=== PATIENT | female | born 1955 | race Caucasian/White ===

== ENCOUNTER 2020-03-29 17:54 | Emergency (ER) | payer MEDICARE, OTHER ==
[~2020-03-29] VITALS: Ht 170.2 cm; Wt 59.0 kg
[2020-03-29 18:00] VITALS: BP 146/78
[2020-03-29 18:24] LABS: BASO % 0 % (0-3); EOS # 0.1 x10^3/uL (0.0-0.7); EOS % 2 % (0-3); HEMATOCRIT 37.1 % (36.0-47.0); HEMOGLOBIN 12.3 g/dL (12.0-15.5); LYMPH % 13 % (24-48); MEAN CORPUSCULAR HEMOGLOBIN 29 pg (25-35); MEAN CORPUSCULAR HGB CONC 33 g/dL (31-37); MEAN CORPUSCULAR VOLUME 89 fL (79-100); MONO # 0.5 x10^3/uL (0.0-1.1); MONO % 6 % (0-9); NEUT # 6.4 x10^3uL (1.8-7.7); NEUT % 79 % (31-73); PLATELET COUNT 384 x10^3/uL (140-400); RED BLOOD COUNT 4.18 x10^6/uL (3.50-5.40); RED CELL DISTRIBUTION WIDTH 15.2 % (11.5-14.5); WHITE BLOOD COUNT 8.1 x10^3/uL (4.0-11.0)
[2020-03-29 18:35] LABS: CALCIUM 8.6 mg/dL (8.5-10.1); CREATININE 0.9 mg/dL (0.6-1.0); GFR 62.6; POTASSIUM 3.2 mmol/L (3.5-5.1)
[2020-03-29 18:41] LABS: ALBUMIN 2.7 g/dL (3.4-5.0); ALBUMIN/GLOBULIN RATIO 0.5 (1.0-1.7); TOTAL BILIRUBIN 0.4 mg/dL (0.2-1.0); TOTAL PROTEIN 7.8 g/dL (6.4-8.2)
--- NOTE | 2020-03-29 18:41 | RAD ---
Examination: CHEST AP ONLY History: Reason: covid / Spl. Instructions: / History: Comparison: None. Findings: AP portable upright frontal view of the chest was obtained. Left axillary surgical clips are present. Breast implants bilaterally noted. The cardiomediastinal silhouette is normal. Right basilar infiltrates are notable. Minimal retrocardiac left basilar discoid atelectasis and possibly infiltrates. Pulmonary inflation is present.. There is no pneumothorax. No pleural effusion is appreciated. No acute bone abnormality. IMPRESSION: Significant bibasilar infiltrates. Minimal retrocardiac left basilar infiltrate or atelectasis. Follow-up to resolution recommended. Electronically signed by: Rudy Bravo MD (03/29/2020 6:38 PM) [facility]
--- NOTE | 2020-03-29 18:53 | PHYS DOC ---
Past History Past Medical History: Cancer, COPD, Hypothyroid Past Surgical History: Cancer Surgery Alcohol Use: None General Adult EDM: Chief Complaint: SHORTNESS OF BREATH HPI: HPI: 64-year-old female presents with shortness of breath. Patient has been feeling progressively more short of breath for several days. She has COPD requiring 3 L of oxygen all the time at baseline. She denies fever or chills. She denies nausea, vomiting, or diarrhea. Review of Systems: Review of Systems: Constitutional: Denies fever or chills Eyes: Denies change in visual acuity HENT: Denies nasal congestion or sore throat Respiratory: shortness of breath Cardiovascular: Denies chest pain or edema GI: Denies abdominal pain, nausea, vomiting, bloody stools or diarrhea : Denies dysuria Musculoskeletal: Denies back pain or joint pain Integument: Denies rash Neurologic: Denies headache, focal weakness or sensory changes Endocrine: Denies polyuria or polydipsia Lymphatic: Denies swollen glands Psychiatric: Denies depression or anxiety Physical Exam: PE: Constitutional: Well developed, well nourished, mild acute distress. [] HENT: Normocephalic, atraumatic, bilateral external ears normal, oropharynx moist, no oral exudates, nose normal. [] Eyes: PERRLA, EOMI, conjunctiva normal, no discharge. [] Neck: Normal range of motion, no tenderness, supple, no stridor. [] Cardiovascular: Heart rate 97, regular rhythm, no murmur [] Lungs & Thorax: Bilateral breath sounds severely diminished [] Abdomen: Bowel sounds normal, soft, no tenderness, no masses, no pulsatile masses. [] Skin: Warm, dry, no erythema, no rash. [] Back: No tenderness, no CVA tenderness. [] Extremities: No tenderness, no cyanosis, no clubbing, ROM intact, no edema. [] Neurologic: Alert and oriented X 3, normal motor function, normal sensory function, no focal deficits noted. [] Psychologic: Affect normal, judgement normal, mood normal. [] Current Patient Data: Labs: Laboratory Tests Test 03/29/20 18:10 White Blood Count 8.1 x10^3/uL (4.0-11.0) Red Blood Count 4.18 x10^6/uL (3.50-5.40) Hemoglobin 12.3 g/dL (12.0-15.5) Hematocrit 37.1 % (36.0-47.0) Mean Corpuscular Volume 89 fL (79-100) Mean Corpuscular Hemoglobin 29 pg (25-35) Mean Corpuscular Hemoglobin Concent 33 g/dL (31-37) Red Cell Distribution Width 15.2 % (11.5-14.5) H Platelet Count 384 x10^3/uL (140-400) Neutrophils (%) (Auto) 79 % (31-73) H Lymphocytes (%) (Auto) 13 % (24-48) L Monocytes (%) (Auto) 6 % (0-9) Eosinophils (%) (Auto) 2 % (0-3) Basophils (%) (Auto) 0 % (0-3) Neutrophils # (Auto) 6.4 x10^3uL (1.8-7.7) Lymphocytes # (Auto) 1.0 x10^3/uL (1.0-4.8) Monocytes # (Auto) 0.5 x10^3/uL (0.0-1.1) Eosinophils # (Auto) 0.1 x10^3/uL (0.0-0.7) Basophils # (Auto) 0.0 x10^3/uL (0.0-0.2) Sodium Level 136 mmol/L (136-145) Potassium Level 3.2 mmol/L (3.5-5.1) L Chloride Level 97 mmol/L (98-107) L Carbon Dioxide Level 31 mmol/L (21-32) Anion Gap 8 (6-14) Blood Urea Nitrogen 9 mg/dL (7-20) Creatinine 0.9 mg/dL (0.6-1.0) Estimated GFR (Cockcroft-Gault) 62.6 BUN/Creatinine Ratio 10 (6-20) Glucose Level 124 mg/dL (70-99) H Calcium Level 8.6 mg/dL (8.5-10.1) Total Bilirubin 0.4 mg/dL (0.2-1.0) Aspartate Amino Transferase (AST) 31 U/L (15-37) Alanine Aminotransferase (ALT) 19 U/L (14-59) Alkaline Phosphatase 82 U/L (46-116) Troponin I Quantitative 0.870 ng/mL (0-0.055) H Total Protein 7.8 g/dL (6.4-8.2) Albumin 2.7 g/dL (3.4-5.0) L Albumin/Globulin Ratio 0.5 (1.0-1.7) L Vital Signs: Vital Signs Date Time Temp Pulse Resp B/P (MAP) Pulse Ox O2 Delivery O2 Flow Rate FiO2 03/29/20 18:00 98.7 95 18 146/78 (100) 98 NonRebreather Mask 15.0 EKG: EKG: Sinus rhythm, rate 90, normal axis, no ST elevation depressions, inverted T waves in V3 through V6. [] Radiology/Procedures: Radiology/Procedures: [] Impressions: Examination: CHEST AP ONLY History: Reason: covid / Spl. Instructions: / History: Comparison: None. Findings: AP portable upright frontal view of the chest was obtained. Left axillary surgical clips are present. Breast implants bilaterally noted. The cardiomediastinal silhouette is normal. Right basilar infiltrates are notable. Minimal retrocardiac left basilar discoid atelectasis and possibly infiltrates. Pulmonary inflation is present.. There is no pneumothorax. No pleural effusion is appreciated. No acute bone abnormality. IMPRESSION: Significant bibasilar infiltrates. Minimal retrocardiac left basilar infiltrate or atelectasis. Follow-up to resolution recommended. Electronically signed by: Zehra Morrison MD (03/29/2020 6:38 PM) [facility] DICTATED AND SIGNED BY: ZEHRA MORRISON MD DATE: 03/29/20 1838 CC: YANDY RIVERA DO; PCP,NO ~ Heart Score: Risk Factors: Risk Factors: DM, Current or recent (<one month) smoker, HTN, HLP, family history of CAD, obesity. Risk Scores: Score 0 - 3: 2.5% MACE over next 6 weeks - Discharge Home Score 4 - 6: 20.3% MACE over next 6 weeks - Admit for Clinical Observation Score 7 - 10: 72.7% MACE over next 6 weeks - Early Invasive Strategies Course & Med Decision Making: Course & Med Decision Making Pertinent Labs and Imaging studies reviewed. (See chart for details) The patient's chest x-ray is significant for bilateral infiltrates, worse on the right. Her white count is normal. I am suspicious for COVID-19, will cover with a gram of Rocephin and 500 of azithromycin.. The patient is on 7 L nonrebreather with an oxygen saturation of 97%. She has a troponin of 0.87. Her EKG has inverted T waves V3 through V6. This appears to be an NSTEMI. I have paged cardiology. I spoke with Dr. Jackson he has requested transferring the patient to [facility] and placing her on heparin. I spoke with the hospitalist, Dr. Ricketts and he has accepted the patient for admission. She will go to the Covid floor as a PUI and an NSTEMI. 61 minutes of critical care time spent on this patient's excluding any other billable procedures. [] Dragon Disclaimer: Dragon Disclaimer: This electronic medical record was generated, in whole or in part, using a voice recognition dictation system. Departure Departure: Impression: Primary Impression: NSTEMI (non-ST elevated myocardial infarction) Additional Impressions: Suspected 2018 novel coronavirus infection Pneumonia Disposition: 02 DC/TRF OTHER SHORT TERM HOS Condition: GUARDED Referrals: PCP,LEANN (PCP) YANDY RIVERA DO Mar 29, 2020 18:53
[2020-03-29] MEDS ORDERED: AZITHROMYCIN 500 MG in IV NORMAL SALINE 250ML 250 ML IV ONE (19:00)
[2020-03-29] MEDS ORDERED: HEPARIN 25,000UTS/250ML PREMIX 250 ML IV PRN (19:30)
[2020-03-29] MEDS ORDERED: HEPARIN for IV BOLUS 10,000 UNIT/10 ML VIAL. IV PRN (19:30)
[2020-03-29] MEDS ORDERED: HEPARIN for IV BOLUS 10,000 UNIT/10 ML VIAL. IV ONE (19:30)
[2020-03-29] MEDS ORDERED: cefTRIAXone SODIUM 1 GM VIAL ONE (19:31)
[2020-03-29] MEDS ORDERED: IV NORMAL SALINE 250ML 250 ML ONE (19:31)
[2020-03-29] MEDS ORDERED: IV NORMAL SALINE 50ML 50 ML ONE (19:31)
[2020-03-29] MEDS ORDERED: AZITHROMYCIN 500 MG VIAL. IV ONE (19:31)
--- NOTE | 2020-03-30 11:59 | EKG ---
[address] [address] Test Date: 2020-03-29 Test Time: 18:13:48 Pat Name: KRISHAN NICHOLS Department: Room: Gender: F Manager Group: EVELINA : [id number] Requested By: YANDY RIVERA Order Number: [id number] Reading MD: Measurements Intervals [place] Rate: 90 P: 1 ID: [id number] QRS: 52 QRSD: 86 T: 154 QT: 420 QTc: 519 Interpretive Statements SINUS RHYTHM T ABNORMALITY IN ANTERIOR LEADS LATERAL LEADS INFEROLATERAL LEADS PROLONGED QT ABNORMAL ECG RI6.02 No previous ECG available for comparison
--- NOTE | 2020-04-01 16:24 | NUR ---
IP: notified IP and nurse Smith at [facility] of COVID result.
== END 2020-03-29 21:47 | disposition short-term general hospital (02) ==
LOC: ER 17:54
DX: U07.1 COVID-19 (principal); J12.89 Other viral pneumonia; I21.4 Non-ST elevation (NSTEMI) myocardial infarction; E03.9 Hypothyroidism, unspecified; J44.9 Chronic obstructive pulmonary disease, unspecified
CPT/HCPCS: 36415; 71045; 80053; 83605; 84484; 85025; 87040; 93005; 96365; 96375; 96376; 99291; C9803; J0456; J0696; J1644; J7050; U0003

== ENCOUNTER → 2020-10-19 | Outpatient (CLI) | payer MEDICARE, OTHER ==
--- NOTE | 2020-10-19 16:52 | RAD ---
EXAM: CHEST 2 VIEWS. HISTORY: Left chest/back pain. COMPARISON: 03/29/2020. FINDINGS: Frontal and lateral views of the chest are obtained. Hyperinflation indicates advanced chronic obstructive pulmonary disease. Interstitial opacities in maggie th bases are improved since the prior study, reflecting a combination of atelectasis or interstitial change. An opacity in the right cardiophrenic angle may correspond with right middle lobe atelectasis on the lateral projection. This was not definitively seen this previously. There is no pneumothorax or pleural effusion. The heart is not enlarged. There are atherosclerotic calcifications of the aorta . Changes of left axillary lymph node dissection, left mastectomy and implant reconstruction are noted. IMPRESSION: 1. Right middle lobe atelectasis or infiltrate appears new since the prior study. Follow-up to resolu tion is recommended. CT could more definitively define this process if the diagnosis remains unclear. 2. Advanced chronic obstructive pulmonary disease. Scarring or interstitial lung disease in the bases . Electronically signed by: Day Duncan MD (10/19/2020 4:49 PM) [id number]
== END ==
LOC: DXRAD 15:45
PROVIDERS: ATTEND Family Medicine
DX: J44.9 Chronic obstructive pulmonary disease, unspecified (principal); M81.0 Age-related osteoporosis without current pathological fracture
CPT/HCPCS: 71046

== ENCOUNTER → 2021-03-13 | Outpatient (CLI) | payer MEDICARE, OTHER ==
--- NOTE | 2021-03-14 14:23 | RAD ---
Study: MG Digital Screening Unilateral W/shilpi History: Routine screening. Comparison: Most recently on 01/12/2020. Technique: Routine 2D and 3D tomosynthesis digital mammogram views were obtained of the right breast to include implant displaced and nondisplaced views. Interpretation was assisted with the use of comp uter-aided detection. Findings: Breast Tissue Density C: The breasts are heterogeneously dense, which may obscure small masses. Mildly increased periareolar skin thickening and progressive vascular calcifications. Mild overall in creased density of the breast. Similar implant configuration. No newly developed architectural distor tion or concerning mass. No microcalcifications have developed that are suspicious in morphology or d istribution. IMPRESSION: No mammographic evidence of malignancy. Recommend routine screening mammography in one year. BI-RADS category 2: Benign findings. Patient information is entered into the reminder system with a target due date for the next screening mammogram. "Our facility is accredited by the [employer] Mammography Program." Electronically signed by: MIRTHA MONTOYA MD (03/14/2021 2:21 PM) [id number]
== END ==
LOC: MAMMO 14:53
PROVIDERS: ATTEND Family Medicine
DX: Z12.31 Encounter for screening mammogram for malignant neoplasm of breast (principal)
CPT/HCPCS: 77063; 77067